=== PATIENT | male | born 1955 | race Hispanic/Latino ===

== ENCOUNTER 2017-11-06 22:07 | Emergency (ER) | payer OTHER, SELFPAY ==
[2017-11-06 22:34] VITALS: BP 160/68; PULSE 59; RESP 16; TEMP 36.4; O2SAT 98
--- NOTE | 2017-11-06 23:30 | PC.NURSE ---
lt upper anterior leg/thigh pain, began 5 days ago, no known injury, no discoloration/swelling/numbness/tingling on exam, reports improves with nsaids, amb ind with steady gait. upon arrival his complaint was entered as chest pain and leg pain, however pt denies chest pain, states he has not had chest pain/soa at any point. Concern r/t recent long flight from [place].
--- NOTE | 2017-11-06 23:40 | ED_ITS ---
HPI - Extremity Injury (Lower) General Chief Complaint: Extremity Injury, Lower Stated Complaint: CHEST PAIN LEFT LEG PAIN Time Seen by Provider: 11/06/17 23:08 Source: patient Mode of arrival: ambulatory Limitations: no limitations History of Present Illness HPI Narrative: patient is a 62-year-old male presenting with left thigh pain. It has been ongoing for a number of days. 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 He has no back pain no flank pain no testicle pain. He denies any injury. No calf pain no chest pain or shortness of breath. He states that he was on an airplane he just got back from a trip from [place]. He has no previous history of blood clots. He has tried naproxen for pain but it has not been helping. He initially was seen [facility] on [facility] and sent here for further evaluation. MD complaint: thigh injury Related Data Previous Rx's Medication Instructions Recorded meloxicam [Mobic] 7.5 mg PO DAILY PRN #14 tab 11/07/17 Allergies Allergy/AdvReac Type Severity Reaction Status Date / Time No Known Drug Allergies Allergy Verified 11/07/17 00:28 Review of Systems Review of Systems GENERAL: Denies chills,fever HEENT: Denies throat pain RESPIRATORY: Denies dyspnea, cough, wheezing CARDIOVASCULAR: Denies chest pain, palpitations GASTROINTESTINAL: Denies nausea, vomiting MUSCULOSKELETAL: See HPI SKIN: No rash, no laceration, no pruritus NEUROLOGIC: Denies weakness, dizziness, headache, numbness 8 point review of systems is negative except for those stated above and HPI Exam Initial Vital Signs Initial Vital Signs: Vital Signs Temperature 97.6 F 11/06/17 22:34 Pulse Rate 59 L 11/06/17 22:34 Respiratory Rate 16 11/06/17 22:34 Blood Pressure 160/68 H 11/06/17 22:34 Pulse Oximetry 98 11/06/17 22:34 GENERAL: Well-appearing, well-nourished and in [no acute] distress. HEENT: Head atraumatic,EOMI, pupils reactive CARDIOVASCULAR: Regular rate and rhythm without murmurs, rubs or gallops. RESPIRATORY: Breath sounds equal bilaterally, no wheezes rales or rhonchi. ABDOMEN: Soft, nontender. Normoactive bowel sounds all 4 quadrants. No guarding or rebound. EXTREMITIES: Normal range of motion, no clubbing or edema. Neurovascularly intact - left anterior thigh if tender there is no deformity no contusion no rash on no swelling. Full extension and flexion at the knee. No tenderness at hip no calf pain no calf swelling NEUROLOGICAL: Alert and oriented x4.Normal gait and speech. SKIN: Warm, dry, no laceration, no petechiae, no rashes or lesions. Scores Wells' Criteria for DVT Active Cancer (Treatment within 6 months): No Bedridden recently >3 days or major surgery within 4 weeks: No Calf Swelling >3cm compared to other leg: No Collateral (nonvericose) superficial veins present: No Entire leg swollen: No Localized tenderness along the deep vein system: No Pitting edema, confined to symtomatic leg: No Paralysis, paresis, or recent plaster immobilization of ext: No Previously documented DVT: No Alternative dx to DVT as likely or more likely: Yes Wells' criteria for DVT: -2 Course Orders Ordered: ED Orders 11/06/17 23:47 D Dimer Stat Discontinued Medications Ketorolac Tromethamine (Toradol) 30 mg IM NOW ONE Stop: 11/06/17 23:10 Last Admin: 11/07/17 00:28 Dose: 30 mg Vital Signs - 8 hr 11/06/17 22:34 Temperature 97.6 F Pulse Rate 59 L Respiratory Rate 16 Blood Pressure 160/68 H Pulse Oximetry 98 MDM - Extremity Injury (Lower) Lab Data Lab Results 11/06/17 Range/Units 23:47 D-Dimer 219 (<230) ng/mL MDM Narrative Medical decision making narrative: the patient does have risk factor of recent long airplane flight however this is likely musculoskeletal strain. It does not bother him during the day while he is active only at night when he is trying to sleep. He does have improvement after Toradol. Discharge Plan Departure Patient Disposition: Home, Self-Care Clinical Impression: Acute pain of left thigh Discharge Date/Time: 11/07/17 01:15 Interventions: ED Discharge Assessment Last Done: 11/07/17 01:52 Instructions: DI for Muscle Strain Activity Restrictions/Additional Instructions: *You have been diagnosed with muscle strain *What to do: increase activity as tolerated, likely muscle strain *Continue to take medications as directed *Follow up with your primary care provider in 2-3 days *Return to ER if you should have any new, worsening or concerning symptoms Prescriptions: New meloxicam [Mobic] 7.5 mg tablet 7.5 mg PO DAILY PRN (Reason: pain) Qty: 14 RF: 0
[2017-11-07 00:01] LABS: D Dimer 219 ng/mL (<230)
[2017-11-07] MEDS: KETOROLAC 60 MG/2 ML VIAL 30 MG IM (00:28)
== END 2017-11-07 01:15 | disposition home or self-care (01) ==
PROVIDERS: Emergency Provider Emergency Medicine
DX: M79.652 Pain in left thigh (principal)
CPT/HCPCS: 36415; 85379; 99282; 99283; J1885